=== PATIENT | male | born 1965 | race Caucasian/White ===

== ENCOUNTER 2022-03-03 08:09 | Outpatient (CLI) | payer BC, SELFPAY ==
--- NOTE | 2022-03-03 08:15 | CRLHL7_ITS ---
For Patients: As a result of the 21st Century Cures Act, medical imaging exams and procedure reports are released immediately into your electronic medical record. You may view this report before your referring provider. If you have questions, please contact your health care provider. INDICATION: Left leg weakness and pain, previous lumbar spine surgery. COMPARISON: None. TECHNIQUE: Multiplanar multisequence MRI of the lumbar spine was obtained without contrast. FINDINGS: Posterior metallic spinal fusion and interbody space changes L3-S1. Absent pedicle screws on the right at L4 and left L5. Fixation hardware is unremarkable given limitations of technique. There is bony ankylosis across the surgical levels. Mild grade 1 retrolisthesis at L1-2, and L2-3. Lumbar lordosis maintained. Vertebral body heights maintained. No evidence of acute fracture. Degenerative endplate changes greatest at L1-2, and L2-3. No aggressive osseous lesions. Conus medullaris terminates at approximately T12-L1. Prevertebral and paraspinal soft tissues unremarkable. Bilateral renal cysts. T11-12: No significant foraminal spinal canal narrowing. T12-L1: Left central cranial disc extrusion, facet arthropathy, ligamentum flavum laxity. Mild left foraminal narrowing. Mild spinal canal narrowing. L1-2: Right central caudal disc extrusion superimposed on disc-osteophyte complex, facet arthropathy, ligamentum flavum laxity. Mild-moderate neural foraminal narrowing right worse than left. Moderate spinal canal narrowing, with likely impingement of the traversing left L2 nerve root within the lateral recess. L2-3: Diffuse bulge, facet arthropathy. Mild-moderate bilateral foraminal narrowing. Mild-moderate spinal canal narrowing. L3-4: No significant foraminal spinal canal stenosis. L4-5: No significant foraminal spinal canal stenosis. L5-S1: Mild-moderate left neuroforaminal narrowing. No spinal canal narrowing. Included views of the SI joints are unremarkable. IMPRESSION: 1. Posterior metallic spinal fusion and interbody space changes L3-S1. Bony fusion across the surgical levels. No evidence of hardware failure given limitations of MRI. 2. Degenerative endplate changes and grade 1 retrolisthesis at L1-2 and L2-3, with degenerative disc changes and facet arthropathy contributing to moderate spinal canal stenosis at L1-2, and mild-moderate spinal canal narrowing at L2-3. 3. Mild-moderate multilevel neuroforaminal narrowing as detailed. Dictated by Bree Davis MD @ 03/04/2022 8:16:33 AM (Electronically Signed)
== END 2022-03-03 08:10 | disposition home or self-care (01) ==
LOC: MRI 08:11
PROVIDERS: PCP Family Medicine; Visit Provider Physician Assistant Surgical
DX: M48.062 Spinal stenosis, lumbar region with neurogenic claudication (principal); M51.36 Other intervertebral disc degeneration, lumbar region; M62.81 Muscle weakness (generalized)
CPT/HCPCS: 72148

== ENCOUNTER 2022-03-25 10:09 | Outpatient (CLI) | payer BC, SELFPAY | END 2022-03-25 10:10 | disposition home or self-care (01) | LOC: INJ CL 10:10 | PROVIDERS: PCP Family Medicine; Visit Provider Family Medicine | DX: M54.16 Radiculopathy, lumbar region (principal); M51.36 Other intervertebral disc degeneration, lumbar region | CPT/HCPCS: 62323; J0702; Q9966 ==

== ENCOUNTER 2022-05-22 07:30 | Outpatient (RCR) | payer BC, SELFPAY | END 2022-07-29 10:40 | disposition home or self-care (01) | PROVIDERS: PCP Family Medicine; Visit Provider Physician Assistant Surgical | DX: M48.062 Spinal stenosis, lumbar region with neurogenic claudication (principal); Z51.89 Encounter for other specified aftercare | CPT/HCPCS: 97110; 97140; 97162 ==